=== PATIENT | male | born 1970 | race Caucasian/White ===

== ENCOUNTER → 2018-09-03 | Day surgery (SDC) | payer OTHER ==
[~2018-09-03] MED LIST: ASPIRIN81 MG; COQ-10100 MG; DEXAMETHASONE SOD PHOS INJ 4 MG/ML VIAL ONE; FENTANYL CITRATE/PF 100MCG/2 ML INJ ONE; FIBER-TABS625 MG; FISH OIL 1,0001 EAC2; LATANOPROST2.5 ML OP; LEVOFLOXACIN 500MG/D5W 100ML 100 ML IV ONE; LIDOCAINE HCL 2% LOCAL INJ 5 ML SDV VIAL INJ ONE; METFORMIN HCL500 MG PO; MIDAZOLAM HCL 2 MG/2 ML VIAL ONE; MULTIVITAMINS1 EAC7; ONDANSETRON HCL INJ 2MG/ML 2ML 2 MG/ML VIAL ONE; PROPOFOL IV EMULSION 10 MG/ML 20 ML VIAL ONE; RAMIPRIL5 MG PO; REMICADE100 MG/VIA; SEVOFLURANE INHAL SOLN 250 ML PEN BTL ONE; ZYRTEC10 M3
--- OUTSIDE RECORDS SUMMARY | 2018-09-03 08:10 | XMS REPORT ---
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 Problem Psoriasis vulgaris L40.0 Active Assessment Psoriasis vulgaris L40.0 Active Medications Medication Code System Code Instructions Start Date End Date Status Dosage Ramipril [facility] 63207550399 10 MG Orally Once a day Active 1 capsule Latanoprost [facility] 72884991829 0.005 % Ophthalmic Once a day Active 1 drop into affected eye in the evening Remicade [facility] 07653931585 100 MG Intravenous May 07, 2018 Active as directed Aspirin [facility] 14710352880 81 MG Orally Once a day Active 1 tablet Trulicity [facility] 56311575504 1.5 MG/0.5ML Subcutaneous Active as directed Vital Signs Date/Time: July 14, 2018 Height 71 in Blood Pressure Diastolic 68 mm Hg Blood Pressure Systolic 121 mm Hg Weight 246 lbs Results No Known Results Summary Purpose [employer] Submission
--- OUTSIDE RECORDS SUMMARY | 2018-09-03 08:10 | XMS REPORT ---
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
--- OUTSIDE RECORDS SUMMARY | 2018-09-03 08:10 | XMS REPORT ---
Author Author Silvia Lopez Organization [employer] Address Unknown Phone Unavailable Care Team Providers Care Juvenile Justice Specialist Name Role Phone Silvia Lopez CP Unavailable Allergies, Adverse Reactions, Alerts Substance Reaction Event Type N.K.D.A. 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 Medications Medication Code System Code Instructions Start Date End Date Status Dosage Aspirin [facility] 14290626530 81 MG Orally Once a day Active 1 tablet Latanoprost [facility] 15217884064 0.005 % Ophthalmic Once a day Active 1 drop into affected eye in the evening Trulicity [facility] 94028276461 1.5 MG/0.5ML Subcutaneous Active as directed Metformin HCl [facility] 53109158466 500 MG Orally Once a day Active 1 tablet with a meal Levaquin [facility] 10993980284 250 MG Orally Once a day Active 2 tablets Ramipril [facility] 51512102805 10 MG Orally Once a day Active 1 capsule Remicade [facility] 27219556729 100 MG Intravenous Active as directed Vital Signs Date/Time: July 29, 2018 Height 71 in Blood Pressure Diastolic 87 mm Hg Blood Pressure Systolic 117 mm Hg Weight 244.0 lbs Results No Known Results Summary Purpose [employer] Submission
--- OUTSIDE RECORDS SUMMARY | 2018-09-03 08:10 | XMS REPORT ---
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
--- OUTSIDE RECORDS SUMMARY | 2018-09-03 08:10 | XMS REPORT ---
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 Problem Psoriasis vulgaris L40.0 Active Assessment Swelling of joint, wrist, left M25.432 Active Assessment Pain in left wrist M25.532 Active Assessment Stiffness of left wrist joint M25.632 Active Medications Medication Code System Code Instructions Start Date End Date Status Dosage Methotrexate [facility] 00794900557 2.5 mg Orally Once a week Mar 25, 2018 Active 6 tabs Aspirin ND 32636720873 81 MG Orally Once a day Active 1 tablet Ramipril ND 82345732628 10 MG Orally Once a day Active 1 capsule Latanoprost ND 65234339171 0.005 % Ophthalmic Once a day Active 1 drop into affected eye in the evening Folic Acid ND 91252739099 1 mg Orally Once a day Mar 25, 2018 Active 1 tablet Trulicity ND 69921637494 1.5 MG/0.5ML Subcutaneous Active as directed Vital Signs Date/Time: Apr 01, 2018 Height 71 in Blood Pressure Diastolic 84 mm Hg Blood Pressure Systolic 126 mm Hg Weight 242.2 lbs Results No Known Results Summary Purpose [employer] Submission
--- OUTSIDE RECORDS SUMMARY | 2018-09-03 08:10 | XMS REPORT ---
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
--- OUTSIDE RECORDS SUMMARY | 2018-09-03 08:10 | XMS REPORT ---
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 Problem Psoriasis vulgaris L40.0 Active Assessment Psoriasis vulgaris L40.0 Active Medications Medication Code System Code Instructions Start Date End Date Status Dosage Trulicity [facility] 34681806048 1.5 MG/0.5ML Subcutaneous Active as directed Remicade [facility] 54776089447 100 MG Intravenous May 07, 2018 Active as directed Ramipril [facility] 37281737860 10 MG Orally Once a day Active 1 capsule Latanoprost [facility] 41168474223 0.005 % Ophthalmic Once a day Active 1 drop into affected eye in the evening Aspirin [facility] 57132613296 81 MG Orally Once a day Active 1 tablet Vital Signs Date/Time: May 28, 2018 Height 71 in Blood Pressure Diastolic 74 mm Hg Blood Pressure Systolic 135 mm Hg Weight 242 lbs Results No Known Results Summary Purpose [employer] Submission
--- OUTSIDE RECORDS SUMMARY | 2018-09-03 08:10 | XMS REPORT ---
Author Author Silvia Lopez Organization [employer] Address Unknown Phone Unavailable Care Team Providers Care Box Sealing Machine Feeder Name Role Phone Silvia Lopez CP Unavailable Allergies, Adverse Reactions, Alerts Substance Reaction Event Type N.K.D.A. 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 Medications Medication Code System Code Instructions Start Date End Date Status Dosage Methotrexate [facility] 20933541046 2.5 mg Orally Once a week Inactive 6 tabs Folic Acid ND 09066347357 1 mg Orally Once a day May 07, 2018 Inactive 1 tablet Trulicity [facility] 86027314273 1.5 MG/0.5ML Subcutaneous Active as directed Aspirin [facility] 93154877366 81 MG Orally Once a day Active 1 tablet Latanoprost [facility] 34997523513 0.005 % Ophthalmic Once a day Active 1 drop into affected eye in the evening Remicade [facility] 59672624613 100 MG Intravenous May 07, 2018 Active as directed Ramipril [facility] 46202843429 10 MG Orally Once a day Active 1 capsule Vital Signs Date/Time: May 07, 2018 Height 71 in Blood Pressure Diastolic 67 mm Hg Blood Pressure Systolic 106 mm Hg Weight 245.6 lbs Results No Known Results Summary Purpose [employer] Submission
--- OUTSIDE RECORDS SUMMARY | 2018-09-03 08:10 | XMS REPORT | Clinical Summary ---
Author Author [facility] Organization [facility] Address Unknown Phone Unavailable Care Team Providers Care Patient Resource Coordinator Name Role Phone Dajuan King MD PCP Allergies No Known Allergies Medications End Date Status Medication Sig Dispensed Refills Start Date Active TRULICITY 1.5 mg/0.5 mL 0 pen injector 7 Active rosuvastatin (CRESTOR) 40 0 MG tablet 7 Active aspirin (ECOTRIN) 81 MG Take 81 mg by 0 enteric coated tablet mouth daily. Active coenzyme Q10 (CO Q-10) Take 100 mg 0 100 mg capsule by mouth daily. Active latanoprost (XALATAN) Administer 1 12 0.005 % ophthalmic drop to both 7 solution eyes nightly. 07/31/2019 Active ramipril (ALTACE) 10 MG Take 1 90 capsule 3 capsule capsule (10 9 mg total) by mouth daily. 08/22/2019 Active metFORMIN XR Take 1 tablet 90 tablet 3 (GLUCOPHAGE-XR) 500 mg 24 (500 mg 9 hr tabletIndications: total) by Type 2 diabetes mellitus mouth daily without complication, with with long-term current breakfast. use of insulin (HCC) 05/04/2018 Discontinued ramipril (ALTACE) 10 MG 0 capsule 7 05/23/2018 Discontinued folic acid (FOLVITE) 1 MG 0 tablet 8 05/23/2018 Discontinued methotrexate 2.5 MG 0 tablet 8 04/03/2018 amoxicillin-pot Take 1 tablet 14 tablet 0 clavulanate (AUGMENTIN) by mouth 2 8 875-125 mg per (two) times a tabletIndications: Acute day for 7 bacterial sinusitis days. 07/31/2018 Discontinued ramipril (ALTACE) 10 MG TAKE ONE 90 capsule 0 capsule CAPSULE BY 9 MOUTH EVERY DAY 05/23/2018 Discontinued empagliflozin-metformin Take 1 tablet 30 each 2 (SYNJARDY XR) 10-1,000 mg by mouth 9 tablet, IR & ER, biphasic daily for 90 24hrIndications: Type 2 days. diabetes mellitus without complication, with long-term current use of insulin (HCC) 08/22/2018 Discontinued metFORMIN XR Take 1 tablet 90 tablet 0 (GLUCOPHAGE-XR) 500 mg 24 (500 mg 9 hr tabletIndications: total) by Type 2 diabetes mellitus mouth daily without complication, with with long-term current breakfast for use of insulin (HCC) 90 days. Status Hospital, Clinic, or Ordered Dose Route Frequency Start End Date Other Facility Date Administered Medication Ended methylPREDNISolone 80 mg IM once 03/27/20 acetate (DEPO-MEDROL) 18 8 injection 80 mgIndications: Acute bacterial sinusitis Ended dexamethasone (DECADRON) 4 mg IM once 03/27/20 injection 4 18 8 mgIndications: Acute bacterial sinusitis Active Problems Problem Noted Date Acute prostatitis 08/21/2018 Last Assessment & Plan: Improved. Repeat UA Follow up with urology today Acute bacterial sinusitis 03/27/2018 Last Assessment & Plan: Hx and exam findings consistent with acute bacterial sinusitis. Nasal saline sprays. Neti pot recommended. Instructions given. Nasal steroids per medication orders. Antihistamines per medication orders. Amoxicillin per medication orders. Type 2 diabetes mellitus without complication, with long-term current use 02/10/2018 of insulin Last Assessment & Plan: Diabetes is improving with lifestyle modifications. Dietary recommendations for ADA diet. Diabetes will be reassessed in 3 months. Essential hypertension 02/10/2018 Last Assessment & Plan: Controlled Continue current regimen Return to clinic in 3 months Mixed hyperlipidemia 02/10/2018 Last Assessment & Plan: Therapeutic lifestyle changes Med per orders Recheck lipid panel Weight loss, exercise Return to clinic in 3 months for recheck Psoriasis 02/10/2018 Overview: Treatment with rheumatology -Dr. Lopez Needs flu shot 02/10/2018 Need for pneumococcal vaccine 02/10/2018 Encounters Care Team Description Date Type Specialty Dajuan King MD Type 2 diabetes mellitus without complication, with long-term current use of insulin (HCC) 08/22/2018 Refill [facility] Dajuan Mercer MD Type 2 diabetes mellitus without complication, with long-term current use of insulin (HCC) (Primary Dx); Acute prostatitis; Essential hypertension; Mixed hyperlipidemia; Psoriasis 08/21/2018 Office Visit [facility] Dajuan Mercer MD Type 2 diabetes mellitus without complication, with long-term current use of insulin (HCC) 08/21/2018 Refill Family Dajuan Mercer MD 07/31/2018 Refill [facility] Dajuan Mercer MD Type 2 diabetes mellitus without complication, with long-term current use of insulin (HCC) (Primary Dx); Essential hypertension; Mixed hyperlipidemia 05/23/2018 Office Visit [facility] Dajuan Mercer MD Type 2 diabetes mellitus without complication, with long-term current use of insulin (HCC) (Primary Dx) 05/23/2018 Refill [facility] Dajuan Mercer MD 05/04/2018 Refill [facility] Dajuan Mercer MD Acute bacterial sinusitis (Primary Dx) 03/27/2018 Office Visit [facility] Dajuan Mercer MD Type 2 diabetes mellitus without complication, with long-term current use of insulin (HCC) (Primary Dx); Essential hypertension; Mixed hyperlipidemia; Psoriasis; Needs flu shot; Need for pneumococcal vaccine 02/10/2018 Office Visit Family Medicine after 09/02/2017 Immunizations Name Dates Previously Given Next Due INFLUENZA QUAD PF 02/10/2018 Pneumococcal Conjugate 02/10/2018 13-Valent Family History Medical History Relation Name Comments Diabetes Mother Relation Name Status Comments Father Alive Mother Alive Social History Date Tobacco Use Types Packs/Day Years Used Never Smoker Smokeless Tobacco: Snuff Current User Alcohol Use Drinks/Week oz/Week Comments Yes beer; social only 1-2 per month Sex Assigned at Date Recorded Male 03/26/2018 6:32 PM 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 Job Start Date Occupation Not on file Not on file Not on file Travel End Travel History Travel Start No recent travel history available. Last Filed Vital Signs Time Taken Vital Sign Reading 08/21/2018 8:03 AM CDT Blood Pressure 113/78 08/21/2018 8:03 AM CDT Pulse 77 08/21/2018 8:03 AM CDT Temperature 36.3 C (97.4 F) - Respiratory Rate - 08/21/2018 8:03 AM CDT Oxygen Saturation 97% - Inhaled Oxygen - Concentration 08/21/2018 8:03 AM CDT Weight 109 kg (240 lb) 08/21/2018 8:03 AM CDT Height 180.3 cm (5' 11") 08/21/2018 8:03 AM CDT Body Mass Index 33.47 Plan of Treatment Care Team Description Date Type Specialty Dajuan King MD [address] [place] [address] [phone] 11/18/2018 Office Visit Family Medicine Health Maintenance Due Date Last Done Comments DIABETIC RETINAL EYE EXAM 09/26/2018 Postponed from 1970 (Not Indicated) INFLUENZA VACCINE 11/27/2018 02/10/2018 URINE MICROALBUMIN 02/10/2019 02/10/2018 DIABETIC FOOT EXAM 08/22/2019 08/21/2018, 08/21/2018 Procedures Comments Procedure Name Priority Date/Time Associated Diagnosis URINALYSIS, COMPLETE, Routine 08/21/2018 Acute prostatitis WITH REFLEX TO CULTURE 8:59 AM CDT LIPID PANEL WITH REFLEX Routine 08/21/2018 Type 2 diabetes mellitus TO DIRECT LDL 8:59 AM CDT without complication, with long-term current use of insulin ([facility]) Mixed hyperlipidemia HEMOGLOBIN A1C Routine 08/21/2018 Type 2 diabetes mellitus 8:59 AM CDT without complication, with long-term current use of insulin ([facility]) COMPREHENSIVE METABOLIC Routine 08/21/2018 Type 2 diabetes mellitus PANEL 8:59 AM CDT without complication, with long-term current use of insulin ([facility]) Essential hypertension CBC WITH PLATELET AND Routine 08/21/2018 Type 2 diabetes mellitus DIFFERENTIAL 8:59 AM CDT without complication, with long-term current use of insulin ([facility]) POC GLYCOSYLATED Routine 05/23/2018 Type 2 diabetes mellitus HEMOGLOBIN (HGB A1C) 10:51 AM 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 without complication, with long-term current use of insulin ([facility]) MICROALBUMIN / CREATININE Routine 02/10/2018 Type 2 diabetes mellitus URINE RATIO 12:00 AM CDT without complication, with long-term current use of insulin ([facility]) URINALYSIS, COMPLETE, Routine 02/10/2018 Type 2 diabetes mellitus WITH REFLEX TO CULTURE 12:00 AM CDT without complication, with long-term current use of insulin ([facility]) THYROID STIMULATING Routine 02/10/2018 Type 2 diabetes mellitus HORMONE 12:00 AM CDT without complication, with long-term current use of insulin ([facility]) LIPID PANEL WITH REFLEX Routine 02/10/2018 Mixed hyperlipidemia TO DIRECT LDL 12:00 AM CDT HEMOGLOBIN A1C Routine 02/10/2018 Type 2 diabetes mellitus 12:00 AM CDT without complication, with long-term current use of insulin ([facility]) COMPREHENSIVE METABOLIC Routine 02/10/2018 Type 2 diabetes mellitus PANEL 12:00 AM CDT without complication, with long-term current use of insulin ([facility]) Essential hypertension CBC WITH PLATELET AND Routine 02/10/2018 Type 2 diabetes mellitus DIFFERENTIAL 12:00 AM CDT without complication, with long-term current use of insulin ([facility]) after 09/02/2017 Results * URINALYSIS, COMPLETE, WITH REFLEX TO CULTURE (08/21/2018 8:59 AM CDT) Only the most recent of 2 results within the time period is included. Color, UA DARK YELLOW YELLOW [facility] Appearance CLEAR CLEAR [facility] Specific gravity, urine 1.029 1.001 - 1.035 [facility] pH, urine < OR=5.0 5.0 - 8.0 [facility] Glucose, urine NEGATIVE NEGATIVE [facility] Bilirubin, UA NEGATIVE NEGATIVE [facility] Ketones, UA NEGATIVE NEGATIVE [facility] Occult blood, urine NEGATIVE NEGATIVE [facility] Protein, UA NEGATIVE NEGATIVE [facility] Nitrite, UA NEGATIVE NEGATIVE [facility] Leukocyte esterase, UA NEGATIVE NEGATIVE [facility] WBC, UA NONE SEEN < OR=5 /HPF [facility] RBC, UA 0-2 < OR=2 /HPF [facility] Squamous epithelial NONE SEEN < OR=5 /HPF [facility] cells, UA [place] Bacteria, UA NONE SEEN NONE SEEN /HPF [facility] Hyaline casts, UA NONE SEEN NONE SEEN /LPF [facility] [place] Reflex NO CULTURE INDICATED [facility] [place] Narrative Performed At FASTING:YES [facility] FASTING: YES Resulting Agency Comment Performing Organization Information: Site ID: [id number] Name: [facility] Address: [address] [place] [phone] Director: Lynne Singh Performing Organization Address City/[facility] Hospitalcode [place] [address] * LIPID PANEL WITH REFLEX TO DIRECT LDL (08/21/2018 8:59 AM CDT) Only the most recent of 2 results within the time period is included. Cholesterol, total 212 (H) <200 mg/dL [facility] HDL cholesterol 41 >40 mg/dL [facility] [place] Triglycerides 180 (H) <150 mg/dL [facility] [place] LDL cholesterol 139 (H) mg/dL (calc) [facility] calculated Comment: [place] Reference range: <100 Desirable range <100 mg/dL for primary prevention; <70 mg/dL for patients with CHD or diabetic patients with > or=2 CHD risk factors. LDL-C is now calculated using the Jye-Bobby calculation, which is a validated novel method providing better accuracy than the Friedewald equation in the estimation of LDL-C. Jey SS et al. FRANSISCO. 2013;310(19): 4515-9377 (http://education.Client24.[place]/faq/CCC041) Cholesterol/HDL ratio 5.2 (H) <5.0 (calc) [facility] Non-HDL cholesterol 171 (H) <130 mg/dL (calc) [facility] Comment: [place] For patients with diabetes plus 1 major ASCVD risk factor, treating to a non-HDL-C goal of <100 mg/dL (LDL-C of <70 mg/dL) is considered a therapeutic option. Narrative Performed At FASTING:YES [facility] FASTING: YES Resulting Agency Comment Performing Organization Information: Site ID: [id number] Name: [facility] Address: [address] [place] [phone] Director: Lynne Singh Performing Organization Address City/[facility]/Zipcode Phone Number [place] [facility] [address] [phone] * CBC with platelet and differential (08/21/2018 8:59 AM CDT) Only the most recent of 2 results within the time period is included. WBC 6.9 3.8 - 10.8 Thousand/uL [facility] [place] RBC 5.11 4.20 - 5.80 Million/uL [facility] [place] HGB 15.8 13.2 - 17.1 g/dL [facility] [place] HCT 46.0 38.5 - 50.0 % [facility] [place] MCV 90.0 80.0 - 100.0 fL [facility] [place] MCH 30.9 27.0 - 33.0 pg [facility] [place] MCHC 34.3 32.0 - 36.0 g/dL [facility] [place] RDW 12.2 11.0 - 15.0 % [facility] [place] Platelet count 245 140 - 400 Thousand/uL [facility] [place] MPV 10.2 7.5 - 12.5 fL [facility] [place] Neutrophils, absolute 2,298 1,500 - 7,800 cells/uL [facility] Lymphocytes, absolute 2,560 850 - 3,900 cells/uL [facility] Monocytes, absolute 1,201 (H) 200 - 950 cells/uL [facility] [place] Eosinophils, absolute 794 (H) 15 - 500 cells/uL [facility] [place] Basophils, absolute 48 0 - 200 cells/uL [facility] [place] Neutrophils 33.3 % [facility] [place] Lymphocytes 37.1 % [facility] [place] Monocytes 17.4 % [facility] [place] Eosinophils 11.5 % [facility] [place] Basophils + RC 0.7 % [facility] [place] Specimen Blood Narrative Performed At FASTING:YES [facility] FASTING: YES Resulting Agency Comment Performing Organization Information: Site ID: [id number] Name: [facility] Address: [address] [place] [phone] Director: Lynne Singh Performing Organization Address City/State/Zipcode [place] [address] * Hemoglobin A1c (08/21/2018 8:59 AM CDT) Only the most recent of 2 results within the time period is included. Hemoglobin A1C 5.6 <5.7 % of total Hgb [facility] Comment: [place] For the purpose of screening for the presence of diabetes: <5.7% Consistent with the absence of diabetes 5.7-6.4%Consistent with increased risk for diabetes (predi abetes) > or=6.5%Consistent with diabetes This assay result is consistent with a decreased risk of diabetes. Currently, no consensus exists regarding use of hemoglobin A1c for diagnosis of diabetes in children. According to [place] Diabetes Association (ADA) guidelines, hemoglobin A1c <7.0% represents optimal control in non- diabetic patients. Different metrics may apply to specific patient populations. Standards of Medical Care in Diabetes(ADA). Specimen Blood Narrative Performed At FASTING:YES [facility] FASTING: YES Resulting Agency Comment Performing Organization Information: Site ID: [id number] Name: [facility] Address: [address] [place] [phone] Director: Lynne Singh Performing Organization Address City/State/Zipcode Phone Number [place] [address] [place] [phone] * Comprehensive metabolic panel (08/21/2018 8:59 AM CDT) Only the most recent of 2 results within the time period is included. Glucose 116 (H) 65 - 99 mg/dL [facility] Comment: [place] Fasting reference interval For someone without known diabetes, a glucose value between 100 and 125 mg/dL is consistent with prediabetes and should be confirmed with a follow-up test. BUN, whole blood 16 7 - 25 mg/dL [facility] [place] Creatinine 1.07 0.60 - 1.35 mg/dL [facility] [place] EGFR Non-Afr. [place] 82 > OR=60 mL/min/1.73m2 [facility] EGFR 95 > OR=60 mL/min/1.73m2 [facility] BUN/creatinine ratio NOT APPLICABLE 6 - 22 (calc) [facility] Sodium 139 135 - 146 mmol/L [facility] Potassium 4.4 3.5 - 5.3 mmol/L [facility] Chloride 105 98 - 110 mmol/L [facility] CO2 25 20 - 32 mmol/L [facility] [place] Calcium 9.5 8.6 - 10.3 mg/dL [facility] [place] Protein 6.8 6.1 - 8.1 g/dL [facility] [place] Albumin, S 4.4 3.6 - 5.1 g/dL [facility] Globulin, total 2.4 1.9 - 3.7 g/dL (calc) [facility] Albumin/globulin ratio 1.8 1.0 - 2.5 (calc) [facility] Total bilirubin 0.4 0.2 - 1.2 mg/dL [facility] [place] Alkaline phosphatase 55 40 - 115 U/L [facility] [place] AST 26 10 - 40 U/L [facility] [place] ALT 46 9 - 46 U/L [facility] [place] Specimen Blood Narrative Performed At FASTING:YES [facility] FASTING: YES Resulting Agency Comment Performing Organization Information: Site ID: [id number] Name: [facility] Address: [address] [place] [phone] Director: Lynne Singh Performing Organization Address City/State/[facility] Hospital[facility] Phone Number [place] [address] [address] * POC glycosylated hemoglobin (Hb A1C) (05/23/2018 10:51 AM 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[employer]) POC Hemoglobin A1C 5.4 % Specimen Blood * Microalbumin / creatinine urine ratio (02/10/2018 12:00 AM CDT) Creatinine, urine, random 174 20 - 320 mg/dL [facility] [place] Microalbumin, urine 0.2 See Note: mg/dL [facility] Comment: [place] Reference Range: Reference Range Not established Microalbumin/creatinine 1 <30 mcg/mg creat [facility] ratio Comment: [place] The ADA defines abnormalities in albumin excretion as follows: Category Result (mcg/mg creatinine) Normal <30 Microalbuminuria 30-299 Clinical albuminuria > GW=517 The ADA recommends that at least two of three specimens collected within a 3-6 month period be abnormal before considering a patient to be within a diagnostic category. Specimen Urine Narrative Performed At FASTING:YES [facility] FASTING: YES Resulting Agency Comment Performing Organization Information: Site ID: [id number] Name: [facility] Address: [address] [place] [phone] Director: Lynne Singh Performing Organization Address City/State/Zipcode Phone Number [place] [address] [phone] * Thyroid stimulating hormone (02/10/2018 12:00 AM CDT) TSH 1.34 0.40 - 4.50 mIU/L [facility] [place] Specimen Blood Narrative Performed At FASTING:YES [facility] FASTING: YES Resulting Agency Comment Performing Organization Information: Site ID: [id number] Name: [facility] Address: [address] [place] [address] Director: Lynne Singh Performing Organization Address City/State/Zipcode Phone Number [place] [facility] [place] [address] [place] [address] after 09/02/2017 Insurance Payer Benefit Subscriber ID Type Phone Address Plan / Group AETNA AETNA PPO xxxxxxxxxx PPO OPEN CHOICE Advance Directives Patient has advance care planning documents on file. For more information, natividad gomez contact: Josse Angulo [address] [place] [address]
--- OUTSIDE RECORDS SUMMARY | 2018-09-03 08:10 | XMS REPORT ---
Author Author [facility] Address Unknown Phone Unavailable Care Team Providers Care Digital Sales Manager Name Role Phone Unavailable Unavailable Payers Payer Name Policy Type Policy Number Effective Date Expiration Date Problems This patient has no known problems. Allergies, Adverse Reactions, Alerts Allergy Name Allergy Type Status Severity Reaction(s) Onset Date Inactive Date Treating Clinician Comments No Known Allergies DA Active U 2018-01-27 00:00:00 Medications This patient has no known medications.
--- OUTSIDE RECORDS SUMMARY | 2018-09-03 08:10 | XMS REPORT | Continuity of Care Document ---
Author Author [facility] Interface Address Unknown Phone Unavailable Problems Problem Status Onset Date Classification Date Reported Comments Source Lumbago due to displacement of intervertebral disc Active Problem 07/30/2018 Silvia Navannesa Psoriasis vulgaris Active Problem 07/30/2018 Silvia Najam LFT elevation Active Diagnosis 07/30/2018 Silvia Najam Counseling NOS Active Diagnosis 07/30/2018 Silvia Najam Hand pain, left Active Diagnosis 05/08/2018 Silvia Najam Hand pain, right Active Diagnosis 05/08/2018 Silvia Navannesa Swelling of joint, wrist, left Active Diagnosis 04/08/2018 Silvia Nazoyam Pain in left wrist Active Diagnosis 04/08/2018 Silvia Najam Stiffness of left wrist joint Active Diagnosis 04/08/2018 Silviaashlyn Lopez High risk medication use Active Diagnosis 07/30/2018 Silvia Lopez Medications Medication Details Route Status Patient Instructions Ordering Provider Order Date Source Remicade as directed Intravenous Active 100 MG Intravenous [facility] 05/07/2018 Silviaashlyn Lopez Folic Acid 1 tablet Orally Active 1 mg Orally Once a day [place] 05/07/2018 Silviaashlyn Lopez Folic Acid 1 tablet Orally Active 1 mg Orally Once a day [facility] 03/25/2018 Silviaashlyn Reid Methotrexate 6 tabs Orally Active 2.5 mg Orally Once a week [facility] 03/25/2018 Silviaashlyn Lopez Latanoprost 1 drop into affected eye in the evening Ophthalmic Active 0.005 % Ophthalmic Once a day [facility] Silvia Reid Aspirin 1 tablet Orally Active 81 MG Orally Once a day [facility]ette Ramipril 1 capsule Orally Active 10 MG Orally Once a day [facility] Silvia Reid Trulicity as directed Subcutaneous Active 1.5 MG/0.5ML Subcutaneous [facility] Methotrexate 6 tabs Orally Active 2.5 mg Orally Once a week [facility] Jeanette Metformin HCl 1 tablet with a meal Orally Active 500 MG Orally Once a day Najam Silvia Najam Levaquin 2 tablets Orally Active 250 MG Orally Once a day Najam Silvia Najam Remicade as directed Intravenous Active 100 MG Intravenous Najam Silvia Najam Allergies, Adverse Reactions, Alerts Substance Category Reaction Severity Reaction type Status Date Reported Comments Source N.K.D.A. Adverse Reaction Info Not Available Adverse Reaction Active 07/29/2018 Silvia Najam Immunizations Immunization Date Given Site Status Last Updated Comments Source Results Order Name Results Value Reference Range Date Interpretation Comments Source Vital Signs Vital Sign Value Date Comments Source Height 71 07/29/2018 Silvia Najam Diastolic (mm Hg) 87 07/29/2018 Silvia Najam Systolic (mm Hg) 117 07/29/2018 Silvia Najam Weight 244.0 07/29/2018 Silvia Najam Height 71 07/14/2018 Silvia Najam Diastolic (mm Hg) 68 07/14/2018 Silvia Najam Systolic (mm Hg) 121 07/14/2018 Silvia Najam Weight 246 07/14/2018 Silvia Najam Height 71 06/16/2018 Silvia Najam Diastolic (mm Hg) 56 06/16/2018 Silvia Najam Systolic (mm Hg) 97 06/16/2018 Silvia Najam Weight 243 06/16/2018 Silvia Najam Height 71 05/28/2018 Silvia Najam Diastolic (mm Hg) 74 05/28/2018 Silvia Najam Systolic (mm Hg) 135 05/28/2018 Silvia Najam Weight 242 05/28/2018 Silvia Najam Height 71 05/07/2018 Silvia Najam Diastolic (mm Hg) 67 05/07/2018 Silvia Najam Systolic (mm Hg) 106 05/07/2018 Silvia Najam Weight 245.6 05/07/2018 Silvia Najam Height 71 04/01/2018 Silvia Najam Diastolic (mm Hg) 84 04/01/2018 Silvia Najam Systolic (mm Hg) 126 04/01/2018 Silvia Najam Weight 242.2 04/01/2018 Silvia Najam Height 71 03/25/2018 Silvia Najam Diastolic (mm Hg) 84 03/25/2018 Silvia Najam Systolic (mm Hg) 126 03/25/2018 Silvia Lopez Weight 242.2 03/25/2018 Silvia Lopez Encounters Location Location Details Encounter Type Encounter Number Reason For Visit Attending Provider ADM Date DC Date Status Source Procedures Procedure Code Date Perfomer Comments Source
--- OUTSIDE RECORDS SUMMARY | 2018-09-03 08:10 | XMS REPORT ---
Author Author Silvia Lopez Organization [employer] Address Unknown Phone Unavailable Care Team Providers Care Laboratory Director Name Role Phone Silvia Lopez CP Unavailable Allergies, Adverse Reactions, Alerts Substance Reaction Event Type N.K.D.A. Info Not Available Non Drug Allergy Problems Problem Type Condition Code Onset Dates Condition Status Assessment Counseling NOS Z71.9 Active Problem Lumbago due to displacement of intervertebral disc M51.26 Active Problem Psoriasis vulgaris L40.0 Active Assessment Hand pain, left M79.642 Active Assessment Hand pain, right M79.641 Active Assessment Psoriasis vulgaris L40.0 Active Assessment Lumbago due to displacement of intervertebral disc M51.26 Active Medications Medication Code System Code Instructions Start Date End Date Status Dosage Latanoprost [facility] 36225181289 0.005 % Ophthalmic Once a day Active 1 drop into affected eye in the evening Aspirin ND 63463249933 81 MG Orally Once a day Active 1 tablet Folic Acid ND 77211456631 1 mg Orally Once a day Mar 25, 2018 Active 1 tablet Ramipril ND 77839516541 10 MG Orally Once a day Active [address] [facility] 82146718731 1.5 MG/0.5ML Subcutaneous Active as directed Methotrexate ND 04843239337 2.5 mg Orally Once a week Mar 25, 2018 Active 6 tabs Vital Signs Date/Time: Mar 25, 2018 Height 71 in Blood Pressure Diastolic 84 mm Hg Blood Pressure Systolic 126 mm Hg Weight 242.2 lbs Results No Known Results Summary Purpose [employer] Submission
--- OUTSIDE RECORDS SUMMARY | 2018-09-03 08:10 | XMS REPORT ---
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 Problem Psoriasis vulgaris L40.0 Active Assessment Psoriasis vulgaris L40.0 Active Medications Medication Code System Code Instructions Start Date End Date Status Dosage Ramipril [facility] 07186032545 10 MG Orally Once a day Active 1 capsule Aspirin [facility] 61856055711 81 MG Orally Once a day Active 1 tablet Trulicity [facility] 83742344127 1.5 MG/0.5ML Subcutaneous Active as directed Remicade [facility] 02583249462 100 MG Intravenous May 07, 2018 Active as directed Latanoprost [facility] 93599692118 0.005 % Ophthalmic Once a day Active 1 drop into affected eye in the evening Vital Signs Date/Time: Jun 16, 2018 Height 71 in Blood Pressure Diastolic 56 mm Hg Blood Pressure Systolic 97 mm Hg Weight 243 lbs Results No Known Results Summary Purpose [employer] Submission
[2018-09-03 10:02] LABS: INR 0.96; PROTHROMBIN TIME 13.3 seconds (11.9-14.5)
[2018-09-03 13:15] VITALS: BP 111/76
--- NOTE | 2018-09-04 11:28 | Operative Report ---
DATE OF PROCEDURE: 09/03/2018 SURGEON: Betito Pérez MD PREOPERATIVE DIAGNOSES: 1. Chronic prostatitis. 2. Recurrent urinary tract infection. 3. Recurrent prostatitis. 4. Frequency and urgency. POSTOPERATIVE DIAGNOSES: 1. Chronic prostatitis. 2. Recurrent urinary tract infection. 3. Recurrent prostatitis. 4. Frequency and urgency. OPERATION: Cystourethroscopy and bilateral retrograde pyelogram. ANESTHESIA: General. INDICATIONS FOR PROCEDURE: Mr. Forrest is a 48-year-old male who presented with a chief complaint of recurrent urinary tract infections, prostatitis, urgency and frequency. He was treated with multiple courses of antibiotics and still has the same problems. This patient was placed on the table in the lithotomy position and was prepped and draped in a sterile manner after satisfactory anesthesia. A #23-Yoruba cystoscope was used and cystourethroscopy was performed and it was noted that the urethra was normal. The prostatic urethra was about 4 to 4.5 cm long, bilobar and partially occlusive. Cystoscopy was then performed using both right-angle and Foroblique lens and it was noted that the bladder mucosa was normal. Both ureteral orifices were seen and were within normal position, configuration, efflux. Right retrograde pyelogram was then performed using #8 bulb tip. Urethral catheter inserted at the right ureteral orifice and 5 mL of contrast material was injected. Retrograde performed and was normal. Left retrograde pyelogram was performed similarly and was normal. The bladder was drained. Cystoscope removed. PLAN: He is to be placed on Bactrim DS one twice a day for three weeks. Ultracet tablet one every 6 to 8 hours p.r.n. and was given 20. Ditropan 5 mg tablet one three times a day for one month. Betito Pérez MD MA/ROMEO /[id number]
== END | disposition home or self-care (01) ==
LOC: OR 08:06
PROVIDERS: ATTEND Specialist
DX: N41.1 Chronic prostatitis (principal); N40.0 Benign prostatic hyperplasia without lower urinary tract symptoms; G47.30 Sleep apnea, unspecified; I10 Essential (primary) hypertension; M06.9 Rheumatoid arthritis, unspecified; L40.9 Psoriasis, unspecified; E11.9 Type 2 diabetes mellitus without complications; Z79.82 Long term (current) use of aspirin; Z79.84 Long term (current) use of oral hypoglycemic drugs
CPT/HCPCS: 36415; 52005; 74420; 82948; 85610; 93005; C1758; J1100; J1956; J2001; J2250; J2405; J2704